=== PATIENT | male | born 1985 | race Caucasian/White ===

== ENCOUNTER 2017-01-03 19:12 | Emergency (ER) | payer SELFPAY ==
[2017-01-03 20:18] LABS: HEMOGLOBIN 15.3 gm/dl (14.0-17.5); RED BLOOD COUNT 5.14 M/UL (4.20-5.50)
[2017-01-03 20:41] LABS: BUN/CREATININE RATIO 13 (0-10)
[2017-01-03 23:13] LABS: GLUCOSE,CSF 66 mg/dL (50-80); TOTAL PROTEIN,CSF 28 mg/dL (20-45)
== END 2017-01-04 00:25 | disposition home or self-care (01) ==
LOC: ER1 19:12
PROVIDERS: Physician Assistant Medical
DX: S20.469A Insect bite (nonvenomous) of unspecified back wall of thorax, initial encounter (principal); W57.XXXA Bitten or stung by nonvenomous insect and other nonvenomous arthropods, initial encounter
CPT/HCPCS: 36415; 70450; 80053; 81001; 82150; 82945; 83605; 83690; 84157; 85025; 86140; 86618; 87040; 87070; 87205; 89051; 96374; 96375; 99284; J1885; J2405; J7030